=== PATIENT | female | born 1980 | race Caucasian/White ===

== ENCOUNTER 2021-07-06 15:50 | Emergency (ER) | payer SELFPAY ==
[~2021-07-06] VITALS: Ht 175.3 cm; Wt 88.5 kg
[2021-07-06] MEDS ORDERED: CLINDAMYCIN HC300 MG PO (16:57)
[2021-07-06] MEDS ORDERED: DEXAMETHASONE SOD PHOS 10 MG/1 ML VIAL IM ONE (17:00)
== END 2021-07-06 17:09 | disposition home or self-care (01) ==
LOC: ER 15:59
DX: J03.90 Acute tonsillitis, unspecified (principal)
CPT/HCPCS: 99282; J1100